=== PATIENT | female | born 1950 | race Caucasian/White ===

== ENCOUNTER 2022-04-10 12:07 | Emergency (ER) | payer OTHER ==
[2022-04-10] MEDS ORDERED: traMADol HCl 50 MG TAB ONE (13:00)
[2022-04-10 13:19] LABS: Bilirubin Neg (Negative); Blood, Urine Negative (Negative); Clarity Clear (Clear); Glucose, Urine (Dipstick) 50 mg/dL (Negative); Ketone, Urine Negative (Negative); Leukocyte Negative (Negative); Nitrite Negative (Negative); Protein, Urine (Dipstick) 15 mg/dl (Neg-Trace); Specific Gravity, Urine 1.015 (1.002-1.036); Urobilinogen Normal mg/dL (Less than 2)
[2022-04-10] MEDS ORDERED: Orphenadrine Citrate 60 MG/2 ML VIAL IM SCH (14:00)
== END 2022-04-10 14:00 | disposition home or self-care (01) ==
LOC: CSHERS 12:07
DX: M62.830 Muscle spasm of back (principal); I10 Essential (primary) hypertension; E11.9 Type 2 diabetes mellitus without complications
CPT/HCPCS: 81003; 96372; 99283; J2360

== ENCOUNTER 2023-09-28 17:52 | Emergency (ER) | payer OTHER | END 2023-09-28 21:42 | disposition home or self-care (01) | LOC: CSHERS 17:52 | DX: M54.42 Lumbago with sciatica, left side (principal); I10 Essential (primary) hypertension; E11.9 Type 2 diabetes mellitus without complications | CPT/HCPCS: 72100; 93005 ==